=== PATIENT | female | born 1990 | race Caucasian/White ===

== ENCOUNTER 2016-06-29 10:33 | Emergency (ER) | payer BC, OTHER ==
[~2016-06-29] VITALS: Ht 162.6 cm; Wt 57.0 kg
[~2016-06-29 10:33] MED LIST: FRRS300 PO; IBUP600T44 PO; PRENTAB26 PO
[2016-06-29 10:45] VITALS: TEMP 36.6; Ht 162.6 cm; Wt 57.0 kg
[2016-06-29] MEDS ORDERED: HYDROCODONE/ACETAMOPHEN 5/325MG TAB PO STA (11:11)
[2016-06-29] MEDS ORDERED: ONDANSETRON 4MG OD TAB PO ONE (11:15)
[2016-06-29] MEDS ORDERED: ONDA4TAB10 SL (11:17)
--- NOTE | 2016-06-29 11:19 | EMERGENCY ROOM VISIT NOTE ---
ED Visit Note First contact with patient: 10:58 CHIEF COMPLAINT: Toothache HISTORY OF PRESENT ILLNESS: This 26-year-old female patient presented to the emergency department ambulatory complaining of left lower dental pain. The patient reports that she has a "bad tooth" in the left lower molars which has been present for several weeks. She states she has had severe pain radiating to the face for the past 12 hours. She has been unable to sleep due to the pain. She rates her discomfort 10/10. She does report a history of dental infections. She is been taking Tylenol without relief. She has an appointment with her dentist on August 15. She denies any fevers/chills or discharge from the mouth. She denies any difficulty swallowing or breathing. She denies neck swelling. The patient was seen at [facility] this morning and given penicillin and Vicodin and states that she vomited them up because the Vicodin made her sick. REVIEW OF SYSTEMS: A 6 system review of systems was completed with positives and pertinent negatives listed in the HPI. ALLERGIES: Bactrim MEDICATIONS: Zoloft PMH: No significant past medical history. SOCIAL HISTORY: The patient lives by herself. She is a smoker. She denies alcohol use. PHYSICAL EXAM: Vitals are noted on the nurse's note and reviewed by myself. Vital signs stable. Temperature 36.6C orally. GENERAL: This is a 26-year-old female, in no acute distress, nondiaphoretic, well-developed well-nourished. Mouth: The left lower molars are carious, but there is no significant gum swelling, no discharge or signs of abscess. The remainder of the pharynx and tonsils are without erythema, edema, or exudate. The airway is patent. There is no facial swelling, cervical or submandibular lymphadenopathy. The patient appears uncomfortable and in pain. The patient has overall poor dental hygiene. EARS: External auditory canals clear, tympanic membranes pearly huggins without erythema or effusion bilaterally. ED COURSE: The patient was evaluated as above. She did receive prescriptions for an antibiotic and Spiritwood at [facility] today. The patient reportedly was unable to take these due to nausea. She was given 1 tablet Spiritwood and one tablet Zofran here and was able to tolerate it without any nausea or vomiting. She was given a prescription for Zofran and told to fill her prescriptions from [facility]. She was instructed that she will need to follow-up with a dentist for further evaluation of her dental pain. Case management did speak with the patient and give her information for follow-up. The patient verbalized understanding of my assessment and treatment plan and was discharged home in good condition. DIAGNOSIS: Odontalgia Current/Historical Medications Scheduled Ondasetron Odt (Zofran Odt), 4 MG SL Q6H Sertraline (Zoloft), 50 MG PO DAILY Allergies Coded Allergies: Sulfamethoxazole w/Trimethoprim (Verified Allergy, Intermediate, Hives, ) Vital Signs Date Time Temp Pulse Resp B/P Pulse Ox O2 Delivery O2 Flow Rate FiO2 06/29/16 11:43 102 18 138/94 97 06/29/16 10:45 36.6 104 18 141/92 97 Room Air Medications Administered Medications (Trade) Dose Ordered Sig/Shanice Route Start Time Stop Time Status Last Admin Dose Admin Acetaminophen/ Hydrocodone Bitart (Spiritwood 5/325 Tab) 1 tab NOW STAT PO 06/29/16 11:11 06/29/16 11:12 DC 06/29/16 11:17 1 TAB Ondansetron HCl (Zofran Odt) 4 mg ONE ONCE PO 06/29/16 11:15 06/29/16 11:16 DC 06/29/16 11:16 4 MG Departure Information Impression Primary Impression: Dental caries Dispostion Home / Self-Care Condition GOOD Prescriptions Ondasetron Odt (ZOFRAN ODT) 4 Mg Tab 4 MG SL Q6H for Nausea, #15 TAB Prov: Kristina Sykes ., SOFIA 06/29/16 Referrals No Doctor, Assigned (PCP) Patient Instructions [facility] Additional Instructions You have been treated in the Emergency Department for Dental Pain. You have received pain medicine in the emergency department which impairs your ability to operate a vehicle. It is illegal for you to drive after receiving these medicines. Take your medications as prescribed. You have been prescribed Zofran to be used for any nausea or vomiting. Take as prescribed. For pain control, you can use the following tumj-far-obwpvid medicines (if >12 yo): - Regular strength (325mg/tab) Tylenol (acetaminophen) 2 tabs every 4-6 hours as needed. Do not exceed 12 tablets in a 24 hour period. Avoid taking more than 4 grams (4000 mg) of Tylenol per day. This includes any other sources of acetaminophen you may take on a regular basis. - Regular strength (200 mg/tab) Advil (ibuprofen) 1-2 tabs every 4-6 hours as needed. Do not exceed a dose of 3200 mg per day. Refrain from smoking cigarettes or using chewing tobacco until you have been evaluated by your dentist. Keeping beverages lukewarm and consuming soft foods can decrease your pain. Warm compresses over the affected area may offer some relief. You MUST seek evaluation of your dental pain by a dentist following your visit to the Emergency Department. The Emergency Department is not capable of treating dental issues long-term. You should call your dentist as soon as possible to make an appointment for evaluation of your dental pain. Return to the emergency department if you develop the following symptoms despite treatment course outlined above: fever, intractable pain, increased redness, swelling, or purulent discharge.
[2016-06-29 11:43] VITALS: BP 138/94; PULSE 102; O2SAT 97
[2016-11-30] MEDS ORDERED: SERT50TA PO (10:55)
[2016-12-03] MEDS ORDERED: SACC250C3 PO (07:57)
[2016-12-03] MEDS ORDERED: HYDR-5688 PO (07:57)
[2016-12-03] MEDS ORDERED: CLIN300C10 PO (07:57)
== END 2016-06-29 11:45 | disposition home or self-care (01) ==
LOC: C.EDB 10:35 → C.EDD 11:45
DX: K02.9 Dental caries, unspecified (principal); F17.200 Nicotine dependence, unspecified, uncomplicated

== ENCOUNTER 2016-11-30 15:53 | Inpatient (IN) | payer BC, OTHER ==
[~2016-11-30] VITALS: Ht 160 cm; Wt 50.0 kg
[~2016-11-30 15:53] MED LIST changes: -FRRS300 PO; -IBUP600T44 PO; +ONDA4TAB10 SL; -PRENTAB26 PO; +SERT50TA PO
[2016-11-30] MEDS ORDERED: AMPICILLIN/SULBACTAM SOD INJ 3,000 MG in SODIUM CHLORIDE 0.9% 100ML 100 ML IV STA (16:15)
[2016-11-30] MEDS ORDERED: SODIUM CHLORIDE 0.9% 500ML 500 ML IV STA (16:15)
[2016-11-30] MEDS ORDERED: MoRPHine SULFATE 4 MG/ML 1 ML CARP\\VIAL IV STA (16:20)
[2016-11-30] MEDS ORDERED: IBUP-1050 PO (16:20)
--- NOTE | 2016-11-30 16:24 | EMERGENCY ROOM VISIT NOTE ---
History First contact with patient: 16:05 Chief Complaint: DENTAL PAIN Stated Complaint: RT SIDE FACIAL SWELLING, SEVERE PAIN Nursing Triage Summary: Pt states she has a bad upper right tooth, started to have swelling this morning at 0200. "Bubble on roof of mouth that is painful, denies drainage. Has not contacted a dentist. History of Present Illness The patient is a 26 year old female who presents to the Emergency Room via private vehicle accompanied by family with complaints of "right-sided facial swelling, severe pain". The patient states that she had a right upper anterior tooth ache, and then this morning woke up around 2:30 AM and had severe right- sided facial pain and swelling from her right upper lip to her right eye. This does include the nasolabial fold. She rates the pain as a 9/10. She has tried ibuprofen with minimal relief. She was seen at [facility] around 4 AM today, and was given amoxicillin and Vicodin. She has taken one dose of amoxicillin and the swelling has progressed and worsened up to her eye. She's never had this before. She has had dental procedures in the past, and notes poor dentition. She denies any fevers or chills. She denies chance of . Review of Systems A complete 10-point Review of Systems was discussed with the patient, with pertinent positives and negatives listed in the History of Present Illness. All remaining Review of Systems questions can be considered negative unless otherwise specified. Past Medical/Surgical History Medical Problems: (1) Facial cellulitis (2) Facial cellulitis (3) Periapical abscess Left wrist surgery, ganglion cyst extraction. Family History Diabetes, high blood pressure, cancer. Social History Smoking Status: Current Every Day Smoker Social History: Patient currently lives alone, smokes tobacco, and denies alcohol use. Current/Historical Medications Scheduled Sertraline (Zoloft), 50 MG PO HS Scheduled PRN Ibuprofen (Advil), 800 MG PO Q8 PRN for Pain Allergies Coded Allergies: Sulfamethoxazole w/Trimethoprim (Verified Allergy, Intermediate, Hives, ) Physical Exam Vital Signs Date Time Temp Pulse Resp B/P (MAP) Pulse Ox O2 Delivery O2 Flow Rate FiO2 11/30/16 21:00 74 20 126/80 100 Room Air 11/30/16 19:16 70 18 125/92 100 11/30/16 17:55 64 12 135/88 100 11/30/16 17:54 100 Room Air 11/30/16 17:30 94 14 116/80 97 11/30/16 15:57 37.0 106 20 138/94 94 Room Air Physical Exam VITAL SIGNS - Vital signs and nursing notes were reviewed. Patient is afebrile , blood pressure 138/94, tachycardic at a rate of 106 bpm, and is saturating well on room air 94%. GENERAL -26-year-old female appearing her stated age who is in no acute distress. Communicates well with provider and answers questions appropriately. SKIN - Without rashes. No petechial rashes. There is slight erythema, and edema of the right side of the face from the right superior lip to the nasolabial fold and on the right eye. HEAD - NC/AT. EYES - PERRL with EOMI bilaterally. Sclera anicteric. Palpebral conjunctiva pink and moist with no injection noted. The right eye elicits painful EOMs. EARS - No deformities of external structures noted on gross examination bilaterally. No pain elicited with palpation of the tragus bilaterally. External auditory canals without discharge or otorrhea. Tympanic membranes pearly huggins without retraction or bulging. No fluid or purulent material visualized behind the TM. Handle of malleus, umbo, cone of light, pars tensa/ flaccid all easily visualized. NOSE - Midline and without cyanosis. No epistaxis or purulent drainage noted. Septum midline without deviation or septal hematoma noted. MOUTH/OROPHARYNX - Without perioral cyanosis. Buccal mucosa pink and moist and without leukoplakia. Tongue midline with equal elevation of palate bilaterally. No tonsillar hypertrophy, erythema, or exudates noted. No dentition noted. NECK - Neck with FROM. Supple to palpation. No lymphadenopathy noted. No nuchal rigidity. LUNGS - Chest wall symmetric without accessory muscle use, intercostals retractions, or central cyanosis. Normal vesicular breath sounds CTA B/L. No wheezes, rales, or rhonchi appreciated. CARDIAC - RRR with S1/S2. No murmur, rubs, or gallops appreciated. NEUROLOGIC - Cranial nerves II through XII grossly intact. PSYCH - Pt is very pleasant and interacts well with examiner. Medical Decision & Procedures ER Provider Diagnostic Interpretation: CT SCAN OF THE FACIAL BONES WITH IV CONTRAST CLINICAL HISTORY: Right facial edema and erythema. COMPARISON STUDY: No priors. TECHNIQUE: High-resolution CT scan of the facial bones is performed following the IV administration of 116 cc of Optiray 320. Images are reviewed in the axial, sagittal, and coronal planes. IV contrast was administered without complication. CT DOSE: 652.63 mGy.cm FINDINGS: The skeletal structures are well mineralized. There is no evidence of facial bone fracture. The bony orbits are intact and the orbital contents are within normal limits. The zygomatic arches, nasal bones, and pterygoid plates are preserved. The maxilla and mandible are intact. There are no layering blood products within the paranasal sinuses. Trace mucosal thickening is seen within the maxillary antra. The remaining paranasal sinuses and the mastoid air cells are clear. The visualized calvarium and upper cervical spine are maintained. Partially imaged brain parenchyma is within normal limits. A lip piercing is noted. There is a large periapical lucency with cortical breakthrough seen around the right maxillary incisors. There is an impacted tooth at this level. There is overlying soft tissue edema and induration. A 12 mm periapical abscess is observed. This is best seen on axial image #35 of 82. A periapical lucency with overlying cortical breakthrough is also seen involving the left maxillary canine. No additional periapical lucencies are identified. Numerous dental caries are observed. Several of the maxillary teeth are missing. Mildly enlarged cervical lymph nodes are likely on a reactive basis. IMPRESSION: 1. There is no evidence of facial bone fracture. 2. There is a large periapical lucency identified at the expected location of the right maxillary incisors. There is associated cortical breakthrough, with evidence of overlying cellulitis and a 12 mm abscess. There is an impacted/unerupted tooth at this site. Follow-up with dentistry is recommended. 3. A periapical lucency with cortical breakthrough is also seen involving the left maxillary canine. 4. Additional dental caries are identified. 5. Mildly enlarged cervical lymph nodes are likely on a reactive basis. Clinical correlation will be required. Electronically signed by: Marcellus Arevalo M.D. 11/30/2016 7:07 PM Dictated Date/Time: 11/30/2016 6:54 PM Laboratory Results 11/30/16 16:30 Red Blood Count 4.68, Mean Corpuscular Volume 85.7, Mean Corpuscular Hemoglobin 28.8, Mean Corpuscular Hemoglobin Concent 33.7, Mean Platelet Volume 10.4, Neutrophils (%) (Auto) 71.3, Lymphocytes (%) (Auto) 22.0, Monocytes (%) (Auto) 5.2, Eosinophils (%) (Auto) 1.2, Basophils (%) (Auto) 0.2, Neutrophils # (Auto) 10.53, Lymphocytes # (Auto) 3.24, Monocytes # (Auto) 0.76, Eosinophils # (Auto) 0.17, Basophils # (Auto) 0.03 11/30/16 16:30 Test 11/30/16 16:30 11/30/16 16:40 White Blood Count 14.75 K/uL (4.8-10.8) Red Blood Count 4.68 M/uL (4.2-5.4) Hemoglobin 13.5 g/dL (12.0-16.0) Hematocrit 40.1 % (37-47) Mean Corpuscular Volume 85.7 fL (80-100) Mean Corpuscular Hemoglobin 28.8 pg (25-34) Mean Corpuscular Hemoglobin Concent 33.7 g/dl (32-36) Platelet Count 210 K/uL (130-400) Mean Platelet Volume 10.4 fL (7.4-10.4) Neutrophils (%) (Auto) 71.3 % Lymphocytes (%) (Auto) 22.0 % Monocytes (%) (Auto) 5.2 % Eosinophils (%) (Auto) 1.2 % Basophils (%) (Auto) 0.2 % Neutrophils # (Auto) 10.53 K/uL (1.4-6.5) Lymphocytes # (Auto) 3.24 K/uL (1.2-3.4) Monocytes # (Auto) 0.76 K/uL (0.11-0.59) Eosinophils # (Auto) 0.17 K/uL (0-0.5) Basophils # (Auto) 0.03 K/uL (0-0.2) RDW Standard Deviation 42.0 fL (36.4-46.3) RDW Coefficient of Variation 13.3 % (11.5-14.5) Immature Granulocyte % (Auto) 0.1 % Immature Granulocyte # (Auto) 0.02 K/uL (0.00-0.02) Anion Gap 11.0 mmol/L (3-11) Est Creatinine Clear Calc Drug Dose 113.3 ml/min Estimated GFR () 146.3 Estimated GFR (Non- 126.2 BUN/Creatinine Ratio 12.3 (10-20) Calcium Level 8.8 mg/dl (8.5-10.1) Total Bilirubin 0.3 mg/dl (0.2-1) Aspartate Amino Transf (AST/SGOT) 9 U/L (15-37) Alanine Aminotransferase (ALT/SGPT) 15 U/L (12-78) Alkaline Phosphatase 35 U/L (45-117) Total Protein 7.5 gm/dl (6.4-8.2) Albumin 3.9 gm/dl (3.4-5.0) Globulin 3.6 gm/dl (2.5-4.0) Albumin/Globulin Ratio 1.1 (0.9-2) Human Chorionic Gonadotropin, Qual NEG (NEG) Lactic Acid Level 0.5 mmol/L (0.4-2.0) Medications Administered Medications (Trade) Dose Ordered Sig/Shanice Route Start Time Stop Time Status Last Admin Dose Admin Sodium Chloride 500 ml @ 999 mls/hr Q31M STAT IV 11/30/16 16:15 11/30/16 16:45 DC 11/30/16 16:40 999 MLS/HR Ampicillin Sodium/ Sulbactam Sodium 3000 mg/Sodium Chloride 108 ml @ 200 mls/hr NOW STAT IV 11/30/16 16:15 11/30/16 16:47 DC 11/30/16 17:13 200 MLS/HR Morphine Sulfate (MoRPHine SULFATE INJ) 4 mg NOW STAT IV 11/30/16 16:20 11/30/16 16:21 DC 11/30/16 16:40 4 MG Hydromorphone HCl (Dilaudid Inj) 0.5 mg NOW STAT IV 11/30/16 17:42 11/30/16 17:43 DC 11/30/16 17:55 0.5 MG Dexamethasone Sodium Phosphate (Decadron Inj) 10 mg NOW STAT IV 11/30/16 19:57 11/30/16 19:58 DC 11/30/16 20:32 10 MG Ondansetron HCl (Zofran Inj) 4 mg NOW STAT IV 11/30/16 19:57 11/30/16 19:58 DC 11/30/16 20:32 4 MG Sodium Chloride 1,000 ml @ 100 mls/hr Q10H IV 11/30/16 22:18 12/30/16 22:17 12/01/16 02:30 100 MLS/HR Medical Decision Patient was seen and evaluated as above. After obtaining a thorough history and physical examination IV access was initiated and the above workup was performed. Patient resistbriseyda was today with marked right-sided facial swelling, poor dentition and was believed to be an abscess in the patient's mouth and the anterior superior most portion of the hard palate. She is clinically not that toxic appearing, but is slightly tachycardic at a rate of 106 bpm, and again has marked facial swelling. CBC reveals leukocytosis of 14.75, no anemia. Patient's potassium is slightly low at 3.2. Kidney function is excellent. Liver function unremarkable for emergent process. Lactic acid is 0.5, test negative. She'll be given 3 g of Unasyn secondary to her infection. Case was discussed with my attending, and the decision was made to obtain a contrast CT scan of the maxillofacial region. This does reveal abscess , cortical breakthrough and infection. I did discuss the case subsequently with Dr. Goff, the on-call oral maxillofacial surgeon at [facility]. Just prior to the phone call the patient noted that the pocket in the mouth seem to rupture, and the mouth was rinsed. He (Dr. Goff) recommended that I provide the patient with 10 mg of dexamethasone here, begin her on Augmentin, and have her call for a follow-up in his office. She is also to follow up with a dentist in the meantime. I then went and spoke with the patient about this, and it was identified that the patient had begun to vomit. She was given Zofran. I was concerned that the vomiting could be from the infection, but it also could be from not eating much food today and also from the pain meds. Regardless, I do believe that the patient should stay secondary to her change in status, as well as her clinical presentation. I discussed the case with my attending, and subsequently the hospitalist. Please refer to further documentation regarding the patient's stay. In evaluation treatment this patient following differential diagnoses were entertained: Sepsis, cellulitis, orbital sialitis, perioral cellulitis, among others. The patient does have painful EOMs of the right eye, concerning for periorbital cellulitis. Admission will hinge on this diagnostic concern Impression Primary Impression: Facial cellulitis Additional Impression: Hypokalemia Departure Information Dispostion Admitted as an inpatient Condition FAIR Referrals No Doctor, Assigned (PCP) Patient Instructions [facility] Problem Qualifiers
[2016-11-30 17:08] LABS: BASO % 0.2 %; BASO ABS # 0.03 K/uL (0-0.2); COMPLETE YES; EOS % 1.2 %; HEMATOCRIT 40.1 % (37-47); IG% 0.1 %; LYMPH ABS # 3.24 K/uL (1.2-3.4); MEAN CELL VOLUME 85.7 fL (80-100); MEAN CORPUSCULAR HEMOGLOBIN 28.8 pg (25-34); MEAN CORPUSCULAR HGB CONC 33.7 g/dl (32-36); MEAN PLATELET VOLUME 10.4 fL (7.4-10.4); MONO % 5.2 %; NEUT % 71.3 %; PLATELET COUNT 210 K/uL (130-400); RED BLOOD COUNT 4.68 M/uL (4.2-5.4); WHITE BLOOD COUNT 14.75 K/uL (4.8-10.8)
[2016-11-30 17:26] LABS: BUN/CREATININE RATIO 12.3 (10-20); CALCIUM 8.8 mg/dl (8.5-10.1); CREATININE 0.62 mg/dl (0.60-1.20); POTASSIUM 3.2 mmol/L (3.5-5.1)
[2016-11-30 17:29] LABS: ALB/GLOB RATIO 1.1 (0.9-2)
[2016-11-30] MEDS ORDERED: HYDROmorphone INJ 0.5 MG/0.5 ML SYR IV STA ×2 (17:42→23:23)
[2016-11-30 17:48] LABS: PREG INTERNAL NEGATIVE QC NEG CLEAR BACKGROUND; PREG INTERNAL POSITIVE QC POS CONTROL LINE
[2016-11-30] MEDS ORDERED: OPTIRAY 320 IV PRN (19:00)
--- NOTE | 2016-11-30 19:09 | DIAGNOSTIC IMAGING REPORT ---
CT SCAN OF THE FACIAL BONES WITH IV CONTRAST CLINICAL HISTORY: Right facial edema and erythema. COMPARISON STUDY: No priors. TECHNIQUE: High-resolution CT scan of the facial bones is performed following the IV administration of 116 cc of Optiray 320. Images are reviewed in the axial, sagittal, and coronal planes. IV contrast was administered without complication. CT DOSE: 652.63 mGy.cm FINDINGS: The skeletal structures are well mineralized. There is no evidence of facial bone fracture. The bony orbits are intact and the orbital contents are within normal limits. The zygomatic arches, nasal bones, and pterygoid plates are preserved. The maxilla and mandible are intact. There are no layering blood products within the paranasal sinuses. Trace mucosal thickening is seen within the maxillary antra. The remaining paranasal sinuses and the mastoid air cells are clear. The visualized calvarium and upper cervical spine are maintained. Partially imaged brain parenchyma is within normal limits. A lip piercing is noted. There is a large periapical lucency with cortical breakthrough seen around the right maxillary incisors. There is an impacted tooth at this level. There is overlying soft tissue edema and induration. A 12 mm periapical abscess is observed. This is best seen on axial image #35 of 82. A periapical lucency with overlying cortical breakthrough is also seen involving the left maxillary canine. No additional periapical lucencies are identified. Numerous dental caries are observed. Several of the maxillary teeth are missing. Mildly enlarged cervical lymph nodes are likely on a reactive basis. IMPRESSION: 1. There is no evidence of facial bone fracture. 2. There is a large periapical lucency identified at the expected location of the right maxillary incisors. There is associated cortical breakthrough, with evidence of overlying cellulitis and a 12 mm abscess. There is an impacted/unerupted tooth at this site. Follow-up with dentistry is recommended. 3. A periapical lucency with cortical breakthrough is also seen involving the left maxillary canine. 4. Additional dental caries are identified. 5. Mildly enlarged cervical lymph nodes are likely on a reactive basis. Clinical correlation will be required. Electronically signed by: Marcellus Arevalo M.D. 11/30/2016 7:07 PM Dictated Date/Time: 11/30/2016 6:54 PM
[2016-11-30] MEDS ORDERED: ONDANSETRON INJ 2 MG/ML 2 ML VIAL IV STA (19:57)
[2016-11-30] MEDS ORDERED: DEXAMETHASONE SOD INJ 10 MG/ML VIAL IV STA (19:57)
[2016-11-30] MEDS ORDERED: ACETAMINOPHEN 325 MG TAB PO PRN (22:30)
[2016-11-30] MEDS ORDERED: ONDANSETRON INJ 2 MG/ML 2 ML VIAL IV PRN (22:30)
[2016-11-30] MEDS ORDERED: POLYETHYLENE (MIRALAX) 17 GM PACK PO PRN (22:30)
--- NOTE | 2016-11-30 22:37 | History and Physical ---
History & Physical Date & Time of Service: Nov 30, 2016 at 22:37 Chief Complaint: Rt Side Facial Swelling, Severe Pain Primary Care Physician: No Doctor, Assigned History of Present Illness Source: patient 26-year-old female presented to the ER with complaints of right-sided facial swelling and tooth ache which started yesterday. The patient stated that she had a history of poor dentition and developed toothache especially in her upper canine yesterday. She woke up this morning around 2:30 AM and noticed swelling along her right face including the eye. She also complained of feeling" a bubble" at the roof of her mouth which had spontaneously ruptured in the ER. Denies any fevers or chills. She also noticed blurriness in her right eye and painful extraocular muscles movement. She had used ibuprofen at home with minimal relief. Denies any history of trauma. Social History Smoking Status: Current Every Day Smoker Immunizations History of Influenza Vaccine: Unknown History of Tetanus Vaccine?: Unknown Allergies Coded Allergies: Sulfamethoxazole w/Trimethoprim (Verified Allergy, Intermediate, Hives, ) Home Medications Scheduled Clindamycin Hcl (Clindamycin Hcl), 300 MG PO TID Saccharomyces Boulardii (Florastor), 250 MG PO BID Sertraline (Zoloft), 50 MG PO HS Scheduled PRN Hydrocodone/Acetaminophen 5MG/325MG ([place] 5MG/325MG), 1 TAB PO Q6 PRN for Pain 5-10 Ibuprofen (Advil), 800 MG PO Q8 PRN for Pain Review of Systems Constitutional: No fever, No chills Eyes: + worsening of vision (blurriness of vision in right eye), + eye pain, No diplopia ENT: + dental problems (pain on right maxillary canine), + problem reported ( right-sided facial swelling) Cardiovascular: No chest pain, No orthopnea Abdomen: + vomiting, No pain, No nausea Musculoskeletal: No joint pain Genitourinary - Female: No dysuria, No urinary frequency Neurologic: No memory loss, No paralysis Endocrine: No fatigue Hematologic / Lymphatic: No abnormal bleeding/bruising Physical Exam Vital Signs Date Time Temp Pulse Resp B/P (MAP) Pulse Ox O2 Delivery O2 Flow Rate FiO2 11/30/16 21:00 74 20 126/80 100 Room Air 11/30/16 19:16 70 18 125/92 100 11/30/16 17:55 64 12 135/88 100 11/30/16 17:54 100 Room Air 11/30/16 17:30 94 14 116/80 97 11/30/16 15:57 37.0 106 20 138/94 94 Room Air General Appearance: WD/WN, no apparent distress Eyes: normal inspection ENT: hearing grossly normal, + pertinent finding (dental caries. dark ruptured abscess on hard palate) Neck: supple Respiratory/Chest: lungs clear, normal breath sounds, no respiratory distress, no accessory muscle use Abdomen/GI: normal bowel sounds, soft Back: normal inspection Extremities/Musculoskelatal: no pedal edema Neurologic/Psych: alert, normal mood/affect, oriented x 3 Skin: normal color Diagnostics Laboratory Results Results Past 24 Hours Test 11/30/16 16:30 11/30/16 16:40 Range/Units White Blood Count 14.75 4.8-10.8 K/uL Red Blood Count 4.68 4.2-5.4 M/uL Hemoglobin 13.5 12.0-16.0 g/dL Hematocrit 40.1 37-47 % Mean Corpuscular Volume 85.7 80-100 fL Mean Corpuscular Hemoglobin 28.8 25-34 pg Mean Corpuscular Hemoglobin Concent 33.7 32-36 g/dl Platelet Count 210 130-400 K/uL Mean Platelet Volume 10.4 7.4-10.4 fL Neutrophils (%) (Auto) 71.3 % Lymphocytes (%) (Auto) 22.0 % Monocytes (%) (Auto) 5.2 % Eosinophils (%) (Auto) 1.2 % Basophils (%) (Auto) 0.2 % Neutrophils # (Auto) 10.53 1.4-6.5 K/uL Lymphocytes # (Auto) 3.24 1.2-3.4 K/uL Monocytes # (Auto) 0.76 0.11-0.59 K/uL Eosinophils # (Auto) 0.17 0-0.5 K/uL Basophils # (Auto) 0.03 0-0.2 K/uL RDW Standard Deviation 42.0 36.4-46.3 fL RDW Coefficient of Variation 13.3 11.5-14.5 % Immature Granulocyte % (Auto) 0.1 % Immature Granulocyte # (Auto) 0.02 0.00-0.02 K/uL Sodium Level 142 136-145 mmol/L Potassium Level 3.2 3.5-5.1 mmol/L Chloride Level 107 98-107 mmol/L Carbon Dioxide Level 24 21-32 mmol/L Anion Gap 11.0 3-11 mmol/L Blood Urea Nitrogen 8 7-18 mg/dl Creatinine 0.62 0.60-1.20 mg/dl Est Creatinine Clear Calc Drug Dose 113.3 ml/min Estimated GFR () 146.3 Estimated GFR (Non- 126.2 BUN/Creatinine Ratio 12.3 10-20 Random Glucose 98 70-99 mg/dl Calcium Level 8.8 8.5-10.1 mg/dl Total Bilirubin 0.3 0.2-1 mg/dl Aspartate Amino Transf (AST/SGOT) 9 15-37 U/L Alanine Aminotransferase (ALT/SGPT) 15 12-78 U/L Alkaline Phosphatase 35 45-117 U/L Total Protein 7.5 6.4-8.2 gm/dl Albumin 3.9 3.4-5.0 gm/dl Globulin 3.6 2.5-4.0 gm/dl Albumin/Globulin Ratio 1.1 0.9-2 Human Chorionic Gonadotropin, Qual NEG NEG Lactic Acid Level 0.5 0.4-2.0 mmol/L Microbiology Results 11/30/16 Blood Culture, Received Pending 11/30/16 Blood Culture, Received Pending Diagnostic Radiology [~ rep ct add3]] CT SCAN OF THE FACIAL BONES WITH IV CONTRAST CLINICAL HISTORY: Right facial edema and erythema. COMPARISON STUDY: No priors. TECHNIQUE: High-resolution CT scan of the facial bones is performed following the IV administration of 116 cc of Optiray 320. Images are reviewed in the axial, sagittal, and coronal planes. IV contrast was administered without complication. CT DOSE: 652.63 mGy.cm FINDINGS: The skeletal structures are well mineralized. There is no evidence of facial bone fracture. The bony orbits are intact and the orbital contents are within normal limits. The zygomatic arches, nasal bones, and pterygoid plates are preserved. The maxilla and mandible are intact. There are no layering blood products within the paranasal sinuses. Trace mucosal thickening is seen within the maxillary antra. The remaining paranasal sinuses and the mastoid air cells are clear. The visualized calvarium and upper cervical spine are maintained. Partially imaged brain parenchyma is within normal limits. A lip piercing is noted. There is a large periapical lucency with cortical breakthrough seen around the right maxillary incisors. There is an impacted tooth at this level. There is overlying soft tissue edema and induration. A 12 mm periapical abscess is observed. This is best seen on axial image #35 of 82. A periapical lucency with overlying cortical breakthrough is also seen involving the left maxillary canine. No additional periapical lucencies are identified. Numerous dental caries are observed. Several of the maxillary teeth are missing. Mildly enlarged cervical lymph nodes are likely on a reactive basis. IMPRESSION: 1. There is no evidence of facial bone fracture. 2. There is a large periapical lucency identified at the expected location of the right maxillary incisors. There is associated cortical breakthrough, with evidence of overlying cellulitis and a 12 mm abscess. There is an impacted/unerupted tooth at this site. Follow-up with dentistry is recommended. 3. A periapical lucency with cortical breakthrough is also seen involving the left maxillary canine. 4. Additional dental caries are identified. 5. Mildly enlarged cervical lymph nodes are likely on a reactive basis. Clinical correlation will be required. Electronically signed by: Marcellus Arevalo M.D. 11/30/2016 7:07 PM Dictated Date/Time: 11/30/2016 6:54 PM Impression Assessment and Plan 26-year-old female with poor dentition presented to the ER with complaints of right-sided facial swelling and tooth ache which started yesterday. Right-sided facial cellulitis secondary to periapical abscess/dental caries with ?orbital cellulitis -Face CT: There is a large periapical lucency identified at the expected location of the right maxillary incisors. There is associated cortical breakthrough, with evidence of overlying cellulitis and a 12 mm abscess. A periapical lucency with cortical breakthrough is also seen involving the left maxillary canine. Additional dental caries are identified. - MRI face and orbits ordered to rule out osteomyelitis - blood cultures pending - Maxillofacial surgery consult - IV vancomycin, Unasyn, clindamycin - Pain control with Toradol, morphine for breakthrough pain Full code DVT prophylaxis: SCDs Disposition: Admitted to [facility] Level of Care Med/Surg Resuscitation Status FULL RESUSCITATION VTE Prophylaxis VTE Risk Assessment Done? Y/N: Yes Risk Level: Moderate Given or contraindicated: SCD's Resident Tracking Resident Involvement: Resident Care Provided Care Provided: Adult [facility] Medicine Assessment and Plan Attending Addendum: I physically seen and examined this patient, have supervised the medical residents medical activities, and agree with the H&P as noted above with the following exceptions: NONE The patient is awake, well-developed and adequately nourished, alert and oriented 3, right side of face is swollen from Maxilla to zygomatic arch with swelling of the lids causing a narrowing of the palpebral aperture. She is lying in bed and in no acute distress. HEENT--PERRL, EOMI, mucous membranes and oropharynx dry. Swelling of right side of face with mild erythema and warmth and as noted above. Neck--supple, no JVD or bruits, thyroid normal, trachea midline, no adenopathy. Heart--normal S1 and S2, no extra beats, no murmurs, rubs or gallops. Lungs--clear bilaterally with good air movement, no respiratory distress, no accessory muscle use. Abdomen--normal bowel sounds and soft, nontender and nondistended, no hernias or masses, no organomegaly. Extremities--no cyanosis, clubbing or edema. There are good distal pulses b/l. Dermatologic--normal except as noted above. Neurologic--cranial nerves II through XII grossly intact, motor and sensory examination normal. Rheumatologic--normal range of motion, nontender, muscles and joints. Psychiatric--normal affect. Assessment and Plan: 1. Right-sided facial cellulitis secondary to periapical abscess/poor dentition in general--the patient will be admitted to the hospital for IV vancomycin, IV Unasyn, and IV clindamycin. I recommended an MRI of the brain combo including the facial bones be performed to assess for possibility of osteomyelitis due to cortical disruption of bone noted on CT, and due to concern about possibility of meningitis. Maxillofacial surgical consult has been placed. She also be placed on IV fluids for rehydration, Zofran IV for nausea, and acetaminophen for pain.
[2016-11-30] MEDS ORDERED: VANCOMYCIN CONSULT ACTIVE PRN (22:45)
[2016-11-30] MEDS ORDERED: KETOROLAC TROMETHAMINE 30 MG/ML VIAL IV STA (23:28)
[2016-11-30 23:42] VITALS: O2SAT 97
[2016-12-01 01:55] VITALS: BP 127/75; PULSE 57; TEMP 36.6; O2SAT 97
[2016-12-01] MEDS ORDERED: MoRPHine SULFATE 2 MG/ML CARP ONE (02:26)
[2016-12-01] MEDS ORDERED: NURSING VERBAL MED ORDER ONE ×3 (02:30→11:30)
[2016-12-01] MEDS: SODIUM CHLORIDE 0.9% 1000ML 1,000 ML IV SCH ×3 (02:30→18:16)
[2016-12-01] MEDS ORDERED: MoRPHine SULFATE 2 MG/ML CARP IV ONE (02:30)
[2016-12-01] MEDS: CLINDAMYCIN IV 300 MG in DEXTROSE 5% 50ML 50 ML IV SCH ×3 (02:32→18:15)
[2016-12-01 02:43] VITALS: BP 127/75; PULSE 57; TEMP 36.6; Ht 160 cm; Wt 50.0 kg
[2016-12-01] MEDS ORDERED: VANCOMYCIN INJ 1,300 MG in SODIUM CHLORIDE 0.9% 250ML 250 ML IV ONE (02:45)
[2016-12-01] MEDS ORDERED: MoRPHine SULFATE 2 MG/ML CARP IV PRN (04:15)
[2016-12-01] MEDS: AMPICILLIN/SULBACTAM SOD INJ 3,000 MG in SODIUM CHLORIDE 0.9% 100ML 100 ML IV SCH ×4 (04:32→21:50)
--- NOTE | 2016-12-01 04:37 | Pharmacy Progress Note ---
Pharmacy Antibiotic Consult Date of Service: Dec 01, 2016. Pharmacy Dosing Scope Pharmacy is consulted to initiate VANC-IV dosing therapy, order appropriate labs and adjust drug dose/frequency. Subjective The patient is a 26 year old female admitted on Nov 30, 2016 at 22:32 ordered broad spectrum IV antibiotics (VANC/Unasyn/Clinda) for bone/joint infection Objective Height (Feet): 5 Height (Inches): 3.00 Weight (Kilograms): 50.000 Lab Results (24hrs): Test 11/30/16 16:30 11/30/16 16:40 White Blood Count 14.75 K/uL (4.8-10.8) Red Blood Count 4.68 M/uL (4.2-5.4) Hemoglobin 13.5 g/dL (12.0-16.0) Hematocrit 40.1 % (37-47) Mean Corpuscular Volume 85.7 fL (80-100) Mean Corpuscular Hemoglobin 28.8 pg (25-34) Mean Corpuscular Hemoglobin Concent 33.7 g/dl (32-36) Platelet Count 210 K/uL (130-400) Mean Platelet Volume 10.4 fL (7.4-10.4) Neutrophils (%) (Auto) 71.3 % Lymphocytes (%) (Auto) 22.0 % Monocytes (%) (Auto) 5.2 % Eosinophils (%) (Auto) 1.2 % Basophils (%) (Auto) 0.2 % Neutrophils # (Auto) 10.53 K/uL (1.4-6.5) Lymphocytes # (Auto) 3.24 K/uL (1.2-3.4) Monocytes # (Auto) 0.76 K/uL (0.11-0.59) Eosinophils # (Auto) 0.17 K/uL (0-0.5) Basophils # (Auto) 0.03 K/uL (0-0.2) RDW Standard Deviation 42.0 fL (36.4-46.3) RDW Coefficient of Variation 13.3 % (11.5-14.5) Immature Granulocyte % (Auto) 0.1 % Immature Granulocyte # (Auto) 0.02 K/uL (0.00-0.02) Sodium Level 142 mmol/L (136-145) Potassium Level 3.2 mmol/L (3.5-5.1) Chloride Level 107 mmol/L (98-107) Carbon Dioxide Level 24 mmol/L (21-32) Anion Gap 11.0 mmol/L (3-11) Blood Urea Nitrogen 8 mg/dl (7-18) Creatinine 0.62 mg/dl (0.60-1.20) Est Creatinine Clear Calc Drug Dose 113.3 ml/min Estimated GFR () 146.3 Estimated GFR (Non- 126.2 BUN/Creatinine Ratio 12.3 (10-20) Random Glucose 98 mg/dl (70-99) Calcium Level 8.8 mg/dl (8.5-10.1) Total Bilirubin 0.3 mg/dl (0.2-1) Aspartate Amino Transf (AST/SGOT) 9 U/L (15-37) Alanine Aminotransferase (ALT/SGPT) 15 U/L (12-78) Alkaline Phosphatase 35 U/L (45-117) Total Protein 7.5 gm/dl (6.4-8.2) Albumin 3.9 gm/dl (3.4-5.0) Globulin 3.6 gm/dl (2.5-4.0) Albumin/Globulin Ratio 1.1 (0.9-2) Human Chorionic Gonadotropin, Qual NEG (NEG) Lactic Acid Level 0.5 mmol/L (0.4-2.0) Micro Results: BC x 2 from 11/30/16 Recent Pertinent Medications * DAY # 1: Clinda 300mg IV every 8 hours * DAY # 2: Unasyn 3 grmas IV every 6 hours Assessment & Plan VANC-IV: * Estimated p'kinetics: Vd~0.7L/kg, Ke~0.0982hr-1, T1/2~ 7 hours * Loading dose: VANC 1300mg (~25mg/kg) IV X 1 dose then: * Maintenance Dose: VANC 800mg (~16mg/kg) IV every 8 hours. * Goal trough level estimate: between ~ 20 mcg/mL. * VANC trough @ [facility] prior to 12/02 1000 dose. Pharmacy will continue to follow and will adjust dose/frequency as necessary. Thank you
[2016-12-01 07:09] VITALS: BP 99/58; PULSE 74; TEMP 36.8; O2SAT 97
--- NOTE | 2016-12-01 08:35 | DIAGNOSTIC IMAGING REPORT ---
MRI maxillofacial ORBIT/FACE/NECK WITHOUT CLINICAL HISTORY: periapical abscess with right sided swelling dental abscess TECHNIQUE: Multiaxial MRI acquisition COMPARISON STUDY: CT examination dated 11/30/2016 FINDINGS: The orbits and globes are unremarkable. Retroseptal structures are unremarkable. Major sinuses are considered clear. There is a moderate amount of edema surrounding the right mandible and to lesser extent maxilla. May be a small 12 mm phlegmon lateral to the right mandibular angle. Dentition is as described in the patient's prior CT exam. Periapical lucencies identified in the patient's CT study are less well appreciated on MRI exam. There are several reactive cervical nodes in the cervical chains bilaterally. Indication again shows multifocal areas of irregularity which have been described previously. IMPRESSION: 1. The study does not add significantly to the CT findings described previously. 2.) Maxillary and perimandibular cellulitis. 3. Small phlegmon adjacent to the right mandibular angle. 4. No evidence for major drainable abscess or collection. 5. Abnormal dentition and periapical abscesses as described previously Electronically signed by: Maurisio Kam M.D. 12/01/2016 8:34 AM Dictated Date/Time: 12/01/2016 8:26 AM
[2016-12-01] MEDS ORDERED: LORAZEPAM 0.5 MG TAB PO SCH (09:00)
[2016-12-01 10:01] LABS: BASO % 0.1 %; BASO ABS # 0.01 K/uL (0-0.2); COMPLETE YES; HEMATOCRIT 35.3 % (37-47); IG% 0.2 %; LYMPH % 19.3 %; LYMPH ABS # 2.21 K/uL (1.2-3.4); MEAN CELL VOLUME 85.1 fL (80-100); MEAN CORPUSCULAR HEMOGLOBIN 29.2 pg (25-34); MEAN CORPUSCULAR HGB CONC 34.3 g/dl (32-36); NEUT % 76.4 %; PLATELET COUNT 189 K/uL (130-400); RED BLOOD COUNT 4.15 M/uL (4.2-5.4); WHITE BLOOD COUNT 11.46 K/uL (4.8-10.8)
[2016-12-01] MEDS: KETOROLAC TROMETHAMINE 15 MG/ML VIAL IV. PRN ×2 (10:14→18:15)
[2016-12-01 10:28] LABS: BLOOD UREA NITROGEN 12 mg/dl (7-18); BUN/CREATININE RATIO 23.8 (10-20); CALCIUM 9.1 mg/dl (8.5-10.1); CARBON DIOXIDE 24 mmol/L (21-32); CHLORIDE 108 mmol/L (98-107); GLUCOSE 99 mg/dl (70-99); POTASSIUM 3.5 mmol/L (3.5-5.1); SODIUM 140 mmol/L (136-145)
[2016-12-01] MEDS: VANCOMYCIN INJ 800 MG in SODIUM CHLORIDE 0.9% 250ML 250 ML IV SCH ×2 (10:53→18:15)
[2016-12-01] MEDS: DEXAMETHASONE INJ 8 MG in SYRINGE 0 ML IV SCH ×3 (11:42→23:23)
[2016-12-01] MEDS ORDERED: LORAZEPAM INJ 0.5 MG in SYRINGE 0.75 ML IV ONE (11:45)
--- NOTE | 2016-12-01 13:02 | DIAGNOSTIC IMAGING REPORT ---
ORBIT COMBO CLINICAL HISTORY: 26 year-old Female presenting with periapical abscess, extraocular eye movements painful. TECHNIQUE: Multisequence, multiplanar MR imaging of the orbits was performed before and after administration of 5 mL of Gadavist intravenous contrast. COMPARISON: CT from 11/30/2016 and noncontrast MR from 12/01/2016. FINDINGS: The previously described odontogenic abscess and dental disease is not well evaluated on this examination. Orbits: Globes appear normal. Orbits appear normal without evidence of a fluid collection to suggest abscess. Intraocular muscles demonstrate normal signal intensity. Optic nerves normal. Sinuses: There nasal sinuses clear. Turbinates within normal limits. Brain: Partially evaluated brain parenchyma is within normal limits. No hydrocephalus. No extra-axial fluid collection is apparent. Cervical spine: Upper cervical spine normal. IMPRESSION: 1. Normal orbits. No extension of recently demonstrated odontogenic infection into the sinuses or orbits. Electronically signed by: Malcolm Murphy 12/01/2016 1:01 PM Dictated Date/Time: 12/01/2016 12:45 PM
--- NOTE | 2016-12-01 15:07 | Progress Note ---
Subjective Date of Service: Dec 01, 2016. Subjective Pt evaluation today including: conversation w/ patient, conversation w/ family , physical exam, chart review, lab review, review of studies, conversation w/ dairy feed sales consultant, review of inpatient medication list c/o right facial swelling, tooth pain and right facial pain, the pain is expansion to lower orbital area Problem List Medical Problems: (1) Dental caries Status: Acute (2) Hypokalemia Status: Acute Review of Systems Constitutional: No fever, No chills, No sweats, No weight loss, No weakness, No fatigue, No problem reported Eyes: No worsening of vision, No eye pain, No redness, No discharge, No diplopia ENT: + see HPI, + problem reported, No hearing loss, No unusual epistaxis, No nasal symptoms, No sore throat, No tinnitus, No dental problems, No trouble swallowing Respiratory: No cough, No sputum, No wheezing, No shortness of breath, No dyspnea on exertion, No dyspnea at rest, No hemoptysis Cardiac: No chest pain, No orthopnea, No PND, No edema, No claudication, No palpitations Abdomen: No pain, No nausea, No vomiting, No diarrhea, No constipation Musculoskeletal: No joint pain, No muscle pain, No swelling, No calf pain Female : No dysuria, No urinary frequency, No hematuria, No incontinence, No abnormal vaginal bleeding, No vaginal discharge Neurologic: No memory loss, No paralysis, No weakness, No numbness/tingling, No vertigo, No balance problems Psychiatric: No depression symptoms, No anhedonism, No anxiety, No insomnia, No substance abuse Heme: No abnormal bleeding/bruising, No clotting problems, No swollen lymph nodes, No night sweats Endo: No fatigue, No excessive thirst, No excessive urination Skin: No rash, No itch, No new/changing skin lesions, No color change, No bleeding Objective Vital Signs Date Time Temp Pulse Resp B/P (MAP) Pulse Ox O2 Delivery O2 Flow Rate FiO2 12/01/16 07:09 36.8 74 19 99/58 (72) 97 Room Air 12/01/16 07:05 Room Air 12/01/16 02:43 36.6 57 20 127/75 Room Air 12/01/16 02:00 Room Air 12/01/16 01:55 36.6 57 20 127/75 (92) 97 Room Air 11/30/16 23:42 100 16 129/84 97 11/30/16 21:00 74 20 126/80 100 Room Air 11/30/16 19:16 70 18 125/92 100 11/30/16 17:55 64 12 135/88 100 11/30/16 17:54 100 Room Air 11/30/16 17:30 94 14 116/80 97 11/30/16 15:57 37.0 106 20 138/94 94 Room Air Physical Exam General Appearance: WD/WN, no apparent distress Eyes: normal inspection, EOMI, sclerae normal ENT: hearing grossly normal, pharynx normal, + pharyngeal erythema, + pertinent finding (right facial mild swelling, right lower eyelid mild swelling too, local mild tender,) Neck: supple, no adenopathy, thyroid normal, no JVD, no carotid bruits, trachea midline, + pertinent finding (there was no neck pain) Respiratory/Chest: chest non-tender, lungs clear, normal breath sounds, no respiratory distress, no accessory muscle use Cardiovascular: regular rate, rhythm, no edema, no gallop, no JVD, no murmur Abdomen: normal bowel sounds, non tender, soft, no organomegaly, no pulsatile mass Extremities: normal range of motion, non-tender, normal inspection, no pedal edema, no calf tenderness, normal capillary refill, pelvis stable Neurologic/Psychiatric: chopper feeder II-XII nml as tested, no motor/sensory deficits, alert, normal mood/affect, oriented x 3 Skin: normal color, warm/dry, no rash Lymphatic: no adenopathy Laboratory Results Last 24 Hours Test 11/30/16 16:30 11/30/16 16:40 12/01/16 09:45 White Blood Count 14.75 K/uL 11.46 K/uL Red Blood Count 4.68 M/uL 4.15 M/uL Hemoglobin 13.5 g/dL 12.1 g/dL Hematocrit 40.1 % 35.3 % Mean Corpuscular Volume 85.7 fL 85.1 fL Mean Corpuscular Hemoglobin 28.8 pg 29.2 pg Mean Corpuscular Hemoglobin Concent 33.7 g/dl 34.3 g/dl Platelet Count 210 K/uL 189 K/uL Mean Platelet Volume 10.4 fL 10.0 fL Neutrophils (%) (Auto) 71.3 % 76.4 % Lymphocytes (%) (Auto) 22.0 % 19.3 % Monocytes (%) (Auto) 5.2 % 4.0 % Eosinophils (%) (Auto) 1.2 % 0.0 % Basophils (%) (Auto) 0.2 % 0.1 % Neutrophils # (Auto) 10.53 K/uL 8.76 K/uL Lymphocytes # (Auto) 3.24 K/uL 2.21 K/uL Monocytes # (Auto) 0.76 K/uL 0.46 K/uL Eosinophils # (Auto) 0.17 K/uL 0.00 K/uL Basophils # (Auto) 0.03 K/uL 0.01 K/uL RDW Standard Deviation 42.0 fL 41.6 fL RDW Coefficient of Variation 13.3 % 13.3 % Immature Granulocyte % (Auto) 0.1 % 0.2 % Immature Granulocyte # (Auto) 0.02 K/uL 0.02 K/uL Sodium Level 142 mmol/L 140 mmol/L Potassium Level 3.2 mmol/L 3.5 mmol/L Chloride Level 107 mmol/L 108 mmol/L Carbon Dioxide Level 24 mmol/L 24 mmol/L Anion Gap 11.0 mmol/L 8.0 mmol/L Blood Urea Nitrogen 8 mg/dl 12 mg/dl Creatinine 0.62 mg/dl 0.50 mg/dl Est Creatinine Clear Calc Drug Dose 113.3 ml/min 136.9 ml/min Estimated GFR () 146.3 > 150.0 Estimated GFR (Non- 126.2 135.5 BUN/Creatinine Ratio 12.3 23.8 Random Glucose 98 mg/dl 99 mg/dl Calcium Level 8.8 mg/dl 9.1 mg/dl Total Bilirubin 0.3 mg/dl Aspartate Amino Transf (AST/SGOT) 9 U/L Alanine Aminotransferase (ALT/SGPT) 15 U/L Alkaline Phosphatase 35 U/L Total Protein 7.5 gm/dl Albumin 3.9 gm/dl Globulin 3.6 gm/dl Albumin/Globulin Ratio 1.1 Human Chorionic Gonadotropin, Qual NEG Lactic Acid Level 0.5 mmol/L 0.8 mmol/L Erythrocyte Sedimentation Rate 16 mm/hr Magnesium Level 2.0 mg/dl C-Reactive Protein 7.86 mg/dl Procalcitonin < 0.05 ng/ml Assessment and Plan 26-year-old female with poor dentition admitted on 12/01/2016 because of tooth ache , periapical abscess/dental caries Patient presented to the ER with complaints of right-sided facial swelling and tooth ache which started on the day prior to admission Right-sided facial cellulitis secondary to periapical abscess/dental caries MRI did not show any orbital cellulitis -Face CT: There is a large periapical lucency identified at the expected location of the right maxillary incisors. There is associated cortical breakthrough, with evidence of overlying cellulitis and a 12 mm abscess. A periapical lucency with cortical breakthrough is also seen involving the left maxillary canine. Additional dental caries are identified. No abscess possible has drainage by self already Discussed with oral surgeon, he recommend "nail down IV antibiotics, dexamethasone milligram every 6 hr 3 doses He also said the abscess has self drainaged already, do not need the procedure for now, However patient definitely need to be seen by dentist, and follow-up with him in 2-3 week - blood cultures pending - Until new IV vancomycin, Unasyn, clindamycin for now, she'll be able to nail down antibiotic soon - Pain control with Toradol, morphine for breakthrough pain GI and DVT prophylaxis covered, ambulation soon, out of bed to chair Continued [facility] stay due to: multiple IV medications needed Discharge planning: home
[2016-12-01 16:03] VITALS: BP 106/67; PULSE 77; TEMP 36.8; O2SAT 96
[2016-12-01 23:25] VITALS: BP 105/62; PULSE 77; TEMP 36.8; O2SAT 96
[2016-12-02] MEDS: KETOROLAC TROMETHAMINE 15 MG/ML VIAL IV. PRN ×2 (01:19→07:37)
[2016-12-02] MEDS: VANCOMYCIN INJ 800 MG in SODIUM CHLORIDE 0.9% 250ML 250 ML IV SCH (01:19)
[2016-12-02] MEDS: CLINDAMYCIN IV 300 MG in DEXTROSE 5% 50ML 50 ML IV SCH ×3 (01:19→18:20)
[2016-12-02] MEDS: SODIUM CHLORIDE 0.9% 1000ML 1,000 ML IV SCH (04:01)
[2016-12-02] MEDS: AMPICILLIN/SULBACTAM SOD INJ 3,000 MG in SODIUM CHLORIDE 0.9% 100ML 100 ML IV SCH (04:01)
[2016-12-02 07:21] VITALS: BP 93/54; PULSE 57; TEMP 36.7
[2016-12-02] MEDS ORDERED: NAPROXEN 250 MG TAB PO PRN (08:45)
[2016-12-02] MEDS ORDERED: NURSING VERBAL MED ORDER ONE (08:45)
[2016-12-02] MEDS ORDERED: VANCOMYCIN TROUGH ONE (09:30)
[2016-12-02] MEDS ORDERED: PANTOprazole SOD 40 MG TAB PO STA (09:49)
--- NOTE | 2016-12-02 09:49 | Progress Note ---
Subjective Date of Service: Dec 02, 2016. Subjective Pt evaluation today including: conversation w/ patient, physical exam, chart review, lab review, review of studies, conversation w/ hospice consultant, review of inpatient medication list Report still have right facial pain and swelling, however generally is improving , still have some pain 5 out of 10 which is mild throbbing pain right facial and right lower orbital area mild tender Problem List Medical Problems: (1) Dental caries Status: Acute (2) Hypokalemia Status: Acute Review of Systems Constitutional: No fever, No chills, No sweats, No weight loss, No weakness, No fatigue, No problem reported Eyes: + see HPI, No worsening of vision, No eye pain, No redness, No discharge , No diplopia ENT: + see HPI, No hearing loss, No unusual epistaxis, No nasal symptoms, No sore throat, No tinnitus, No dental problems, No trouble swallowing Respiratory: No cough, No sputum, No wheezing, No shortness of breath, No dyspnea on exertion, No dyspnea at rest, No hemoptysis Cardiac: No chest pain, No orthopnea, No PND, No edema, No claudication, No palpitations Abdomen: No pain, No nausea, No vomiting, No diarrhea, No constipation Musculoskeletal: No joint pain, No muscle pain, No swelling, No calf pain Female : No dysuria, No urinary frequency, No hematuria, No incontinence, No abnormal vaginal bleeding, No vaginal discharge Neurologic: No memory loss, No paralysis, No weakness, No numbness/tingling, No vertigo, No balance problems Psychiatric: No depression symptoms, No anhedonism, No anxiety, No insomnia, No substance abuse Heme: No abnormal bleeding/bruising, No clotting problems, No swollen lymph nodes, No night sweats Endo: No fatigue, No excessive thirst, No excessive urination Skin: No rash, No itch, No new/changing skin lesions, No color change, No bleeding Objective Vital Signs Date Time Temp Pulse Resp B/P (MAP) Pulse Ox O2 Delivery O2 Flow Rate FiO2 12/02/16 07:25 Room Air 12/02/16 07:21 36.7 57 18 93/54 (67) Room Air 98.0 12/01/16 23:25 36.8 77 14 105/62 (76) 96 Room Air 12/01/16 23:20 Room Air 12/01/16 16:03 36.8 77 18 106/67 (80) 96 Room Air 12/01/16 15:40 Room Air Physical Exam General Appearance: WD/WN, no apparent distress Eyes: normal inspection, PERRL, EOMI, sclerae normal, + pertinent finding ( right lower orbital mild tender) ENT: + pertinent finding (right face mild swelling, looks better, right oral cavities no obvious drainage of pus, mild tender when touching the right upper posterior teeth) Neck: supple, no adenopathy, thyroid normal, no JVD, no carotid bruits, trachea midline Respiratory/Chest: chest non-tender, lungs clear, normal breath sounds, no respiratory distress, no accessory muscle use Cardiovascular: regular rate, rhythm, no edema, no gallop, no JVD, no murmur Abdomen: normal bowel sounds, non tender, soft, no organomegaly, no pulsatile mass Extremities: normal range of motion, non-tender, normal inspection, no pedal edema, no calf tenderness, normal capillary refill, pelvis stable 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, no motor/sensory deficits, alert, normal mood/affect, oriented x 3, + abnormal cerebellar tests Skin: normal color, warm/dry, no rash Lymphatic: no adenopathy Laboratory Results Last 24 Hours Test 12/01/16 09:45 12/02/16 09:30 White Blood Count 11.46 K/uL Red Blood Count 4.15 M/uL Hemoglobin 12.1 g/dL Hematocrit 35.3 % Mean Corpuscular Volume 85.1 fL Mean Corpuscular Hemoglobin 29.2 pg Mean Corpuscular Hemoglobin Concent 34.3 g/dl Platelet Count 189 K/uL Mean Platelet Volume 10.0 fL Neutrophils (%) (Auto) 76.4 % Lymphocytes (%) (Auto) 19.3 % Monocytes (%) (Auto) 4.0 % Eosinophils (%) (Auto) 0.0 % Basophils (%) (Auto) 0.1 % Neutrophils # (Auto) 8.76 K/uL Lymphocytes # (Auto) 2.21 K/uL Monocytes # (Auto) 0.46 K/uL Eosinophils # (Auto) 0.00 K/uL Basophils # (Auto) 0.01 K/uL RDW Standard Deviation 41.6 fL RDW Coefficient of Variation 13.3 % Immature Granulocyte % (Auto) 0.2 % Immature Granulocyte # (Auto) 0.02 K/uL Erythrocyte Sedimentation Rate 16 mm/hr Sodium Level 140 mmol/L Potassium Level 3.5 mmol/L Chloride Level 108 mmol/L Carbon Dioxide Level 24 mmol/L Anion Gap 8.0 mmol/L Blood Urea Nitrogen 12 mg/dl Creatinine 0.50 mg/dl Est Creatinine Clear Calc Drug Dose 136.9 ml/min Estimated GFR () > 150.0 Estimated GFR (Non- 135.5 BUN/Creatinine Ratio 23.8 Random Glucose 99 mg/dl Lactic Acid Level 0.8 mmol/L Calcium Level 9.1 mg/dl Magnesium Level 2.0 mg/dl C-Reactive Protein 7.86 mg/dl Procalcitonin < 0.05 ng/ml Assessment and Plan 26-year-old female with poor dentition admitted on 12/01/2016 because of tooth ache , periapical abscess/dental caries Patient presented to the ER with complaints of right-sided facial swelling and tooth ache which started on the day prior to admission Right-sided facial cellulitis secondary to periapical abscess/dental caries: Stable and improving MRI did not show any orbital cellulitis -Face CT: There is a large periapical lucency identified at the expected location of the right maxillary incisors. There is associated cortical breakthrough, with evidence of overlying cellulitis and a 12 mm abscess. A periapical lucency with cortical breakthrough is also seen involving the left maxillary canine. Additional dental caries are identified. No abscess possible has drainage by self already Discussed with oral surgeon, he recommend "nail down IV antibiotics, dexamethasone milligram every 6 hr 3 doses He also said the abscess has self drainage already, do not need the procedure for now, However patient definitely need to be seen by dentist, and follow-up with him in 2-3 week - blood cultures no growth so far -Has been on IV vancomycin, Unasyn, clindamycin - We'll discontinue vancomycin and Unasyn, continue clindamycin, possible switch to oral clindamycin if continue doing well and discharge home tomorrow - Counseling above the side effect of antibiotics, such as severe diarrhea like C. difficile diarrhea, add probiotics - Has been on Pain control with Toradol, morphine for breakthrough pain, will switch to oral pill for the pain control for the preparing of discharge to home GI and DVT prophylaxis covered, ambulation soon, out of bed to chair Possible discharge home tomorrow if continued doing well Continued [facility] stay due to: multiple IV medications needed Discharge planning: home
[2016-12-02 10:07] LABS: BASO % 0.1 %; BASO ABS # 0.01 K/uL (0-0.2); COMPLETE YES; IG% 0.4 %; LYMPH % 15.9 %; MEAN CELL VOLUME 85.1 fL (80-100); MEAN CORPUSCULAR HEMOGLOBIN 29.5 pg (25-34); MEAN CORPUSCULAR HGB CONC 34.7 g/dl (32-36); MEAN PLATELET VOLUME 9.7 fL (7.4-10.4); MONO % 5.3 %; NEUT % 78.3 %; PLATELET COUNT 187 K/uL (130-400); RED BLOOD COUNT 3.76 M/uL (4.2-5.4); WHITE BLOOD COUNT 16.33 K/uL (4.8-10.8)
[2016-12-02 10:35] LABS: BUN/CREATININE RATIO 25.5 (10-20); CALCIUM 8.7 mg/dl (8.5-10.1); CREATININE 0.58 mg/dl (0.60-1.20); MAGNESIUM 1.8 mg/dl (1.8-2.4); POTASSIUM 3.7 mmol/L (3.5-5.1)
[2016-12-02 14:46] VITALS: BP 105/65; PULSE 57; TEMP 36.9; O2SAT 98
[2016-12-02] MEDS: HYDROCODONE/ACETAMOPHEN 5/325MG TAB PO PRN ×2 (14:48→22:23)
[2016-12-02] MEDS: SACCHAROMYCES BOUL (FLORASTOR) 250 MG CAP PO SCH (20:30)
[2016-12-02 23:21] VITALS: BP 113/73; PULSE 54; TEMP 36.6; O2SAT 98
[2016-12-03] MEDS: CLINDAMYCIN IV 300 MG in DEXTROSE 5% 50ML 50 ML IV SCH ×2 (01:46→09:41)
[2016-12-03] MEDS: HYDROCODONE/ACETAMOPHEN 5/325MG TAB PO PRN ×2 (06:02→13:07)
[2016-12-03 06:44] LABS: CREATININE 0.57 mg/dl (0.60-1.20)
[2016-12-03 06:51] VITALS: BP 93/52; PULSE 62; TEMP 36.6; O2SAT 96
[2016-12-03] MEDS ORDERED: CLIN300C10 PO (07:57)
[2016-12-03] MEDS ORDERED: SACC250C3 PO (07:57)
[2016-12-03] MEDS ORDERED: HYDR-5688 PO (07:57)
--- NOTE | 2016-12-03 07:57 | Discharge Instructions ---
Discharge Instructions Date of Service Dec 03, 2016. Admission Reason for Admission: Facial Cellulitis Discharge Discharge Diagnosis / Problem: periapical abscess Discharge Goals Goal(s): Decrease discomfort, Improve function, Increase independence, Improve disease control, Improve nutritional status, Learn about illness, Diagnostic testing, Therapeutic intervention, Prevent Disease Progression, Specific goals Activity Recommendations Activity Limitations: resume your previous activity . Instructions / Follow-Up Instructions / Follow-Up you have Right-sided facial cellulitis secondary to periapical abscess/dental caries: you need to follow up with oral surgeon Dr. Denver Yu in 2-3 weeks ( our navigator will help you to set up) you definitely need to be seen by dentist in 1-2 weeks ( talk to our navigator if you need) I am giving you clindamycin for 10 days this medicine may have the side effects, such as severe diarrhea l you should call pcp if have any questions or concerns soft, and easy chewing diet - you need to follow up with your primary care physician in 1 week, - take medication as instructed, never overdose or any misuse, or take with alcohol, because misuse of medicine may cause organ damage or , call your primary care physician if have questions of medicaitons. - call your primary care physician OR go to local emergency room if has any fever/chill, chest pain, shortness of breathing, nausea/vomiting/abdominal pain , facial droop/slurry speech/local weakness, or if has any questions. - fall precaution - diet as instructed - you need to follow up with your subspecialist - you should understand that it is important to follow up the above instruction , and "not following the above instruction" may cause delayed or missed care of your medical conditions which may cause permanent organ damage and even . Current Hospital Diet Patient's current hospital diet: Regular Diet Discharge Diet Recommended Diet: Regular Diet Procedures Procedures Performed: no Pending Studies Studies pending at discharge: no Laboratory Results Meds Administered (Past 24Hrs) Medications (Trade) Dose Ordered Sig/Shanice Route Start Time Stop Time Status Last Admin Dose Admin Vancomycin HCl 800 mg/Sodium Chloride 266 ml @ 125 mls/hr Q8@0200,1000,1800 IV 12/01/16 10:00 12/02/16 08:38 DC 12/02/16 01:19 125 MLS/HR Dexamethasone Sodium Phosphate 8 mg/Syringe 2 ml @ 1 mls/min Q6 IV 12/01/16 12:00 12/02/16 00:01 DC 12/01/16 23:23 1 MLS/MIN Lorazepam 0.5 mg/ Syringe 1 ml @ 1 mls/min NOW ONCE IV 12/01/16 11:45 12/01/16 11:46 DC 12/01/16 11:42 1 MLS/MIN Acetaminophen/ Hydrocodone Bitart ([place] 5/325 Tab) 1 tab Q6 PRN PO 12/02/16 08:45 12/16/16 08:44 12/03/16 06:02 1 TAB Pantoprazole Sodium (Protonix Tab) 40 mg NOW STAT PO 12/02/16 09:49 12/02/16 10:01 DC 12/02/16 10:17 40 MG Saccharomyces Boulardii (Florastor Cap) 250 mg BID PO 12/02/16 21:00 01/01/17 20:59 12/02/16 20:30 250 MG Medical Emergencies . Who to Call and When: Medical Emergencies: If at any time you feel your situation is an emergency, please call 911 immediately. . Non-Emergent Contact Non-Emergency issues call your: Primary Care Provider . . "Provider Documentation" section prepared by Lui Santiago. . VTE Core Measure Inpt VTE Proph given/why not?: SCD's
[2016-12-03] MEDS: SACCHAROMYCES BOUL (FLORASTOR) 250 MG CAP PO SCH (08:58)
[2016-12-03] MEDS ORDERED: PANTOprazole SOD 40 MG TAB PO SCH (09:00)
[2016-12-03 11:23] VITALS: BP 93/52; PULSE 62; TEMP 36.6; O2SAT 96
--- NOTE | 2016-12-03 12:31 | Discharge Summary ---
Discharge Summary Date of Service Dec 03, 2016. Discharge Summary Admission Date: Nov 30, 2016 at 22:32 Discharge Date: Dec 03, 2016 Discharge Disposition: Home Principal Diagnosis: Right-sided facial cellulitis secondary to periapical abscess/dental caries Problems/Secondary Diagnoses: periapical abscess/dental caries Immunizations: Have You Had Influenza Vaccine: Unknown History of Tetanus Vaccine?: Unknown Medication Reconciliation New Medications: Clindamycin Hcl (Clindamycin Hcl) 300 Mg Cap 300 MG PO TID for 10 Days Hydrocodone/Acetaminophen 5MG/325MG ([place] 5MG/325MG) Tab 1 TAB PO Q6 PRN for Pain 5-10 for 3 Days, TAB PRN PAIN Saccharomyces Boulardii (Florastor) 250 Mg Cap 250 MG PO BID for 10 Days, #20 CAP Continued Medications: Ibuprofen (Advil) 200 Mg Tab 800 MG PO Q8 PRN for Pain, TAB Sertraline (Zoloft) 50 Mg Tab 50 MG PO HS Discharge Exam Complain of the roof of oral cavity has some opening and mild pain, otherwise right facial swelling and pain is better, right lower part of orbital pain is better too, no fever and chill Review of Systems: Constitutional: No fever, No chills, No sweats, No weight loss, No weakness , No fatigue, No problem reported Eyes: No worsening of vision, No eye pain, No redness, No discharge, No diplopia, No problem reported ENT: + problem reported ( roof of oral cavity has 3-4 mm of mucus ulceration , no pus, right face minimal swelling, and right lower jaw mild tender, is better than yesterday,), No hearing loss, No unusual epistaxis, No nasal symptoms, No sore throat, No tinnitus, No dental problems, No trouble swallowing Respiratory: No cough, No sputum, No wheezing, No shortness of breath, No dyspnea on exertion, No dyspnea at rest, No hemoptysis, No problem reported Cardiovascular: No chest pain, No orthopnea, No PND, No edema, No claudication, No palpitations, No problem reported Abdomen: No pain, No nausea, No vomiting, No diarrhea, No constipation, No GI bleeding, No problem reported Musculoskeletal: No joint pain, No muscle pain, No swelling, No calf pain, No problem reported Genitourinary - Female: No dysuria, No urinary frequency, No urinary urgency , No urinary incontinence, No urinary retention, No hematuria, No dysmenorrhea, No menorrhagia, No metrorrhagia, No rash, No vaginal bleeding, No vaginal discharge, No vaginal itching, No vulvodynia, No , No problem reported Neurologic: No memory loss, No paralysis, No weakness, No numbness/tingling , No vertigo, No balance problems, No problem reported Psychiatric: No depression symptoms, No anhedonism, No anxiety, No insomnia , No substance abuse, No problem reported Endocrine: No fatigue, No excessive thirst, No excessive urination, No problem reported Physical Exam: General Appearance: WD/WN, no apparent distress ENT: normal ENT inspection, hearing grossly normal, + pertinent finding ( roof of oral cavity has 3-4 mm of mucus ulceration, no pus, right face minimal swelling, and right lower jaw mild tender, is better than yesterday,) Neck: supple, no adenopathy Respiratory/Chest: chest non-tender, lungs clear, normal breath sounds, no respiratory distress, no accessory muscle use Cardiovascular: regular rate, rhythm, no edema, no gallop, no JVD Abdomen / GI: normal bowel sounds, non tender, soft Extremities: normal inspection, no calf tenderness, normal capillary refill , no pedal edema 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, no motor/sensory deficits , alert, normal mood/affect, normal reflexes Skin: normal color, warm/dry, no rash Hospital Course 26-year-old female with poor dentition admitted on 12/01/2016 because of tooth ache , periapical abscess/dental caries Patient presented to the ER with complaints of right-sided facial swelling and tooth ache which started on the day prior to admission Right-sided facial cellulitis secondary to periapical abscess/dental caries: Continue Stable and improving MRI did not show any orbital cellulitis -Face CT: There is a large periapical lucency identified at the expected location of the right maxillary incisors. There is associated cortical breakthrough, with evidence of overlying cellulitis and a 12 mm abscess. A periapical lucency with cortical breakthrough is also seen involving the left maxillary canine. Additional dental caries are identified. No abscess possible has drainage by self already Discussed with oral surgeon, he recommend "nail down IV antibiotics, dexamethasone milligram every 6 hr 3 doses He also said the abscess has self drainage already, do not need the procedure for now, However patient definitely need to be seen by dentist, and follow-up with oral surgeon in 2-3 week - blood cultures no growth so far -Has been on IV vancomycin, Unasyn, clindamycin - has discontinue vancomycin and Unasyn, continue clindamycin, and will switch to oral clindamycin 300 mg by mouth 3 times a day for 10 days more - Counseling above the side effect of antibiotics, such as severe diarrhea like C. difficile diarrhea, add probiotics - Has been on Pain control with Toradol, morphine for breakthrough pain, will switch to oral pill for the pain control for the preparing of discharge to home GI and DVT prophylaxis covered, ambulation soon, out of bed to chair Instructions / Follow-Up you have Right-sided facial cellulitis secondary to periapical abscess/dental caries: you need to follow up with oral surgeon or neurosurgeon in 2-3 weeks ( our navigator will help you to set up) you definitely need to be seen by dentist in 1-2 weeks ( talk to our navigator if you need) I am giving you clindamycin for 10 days this medicine may have the side effects, such as severe diarrhea l you should call pcp if have any questions or concerns soft, and easy chewing diet - you need to follow up with your primary care physician in 1 week, - Keep oral clean and use mouthwash - take medication as instructed, never overdose or any misuse, or take with alcohol, because misuse of medicine may cause organ damage or , call your primary care physician if have questions of medicaitons. - call your primary care physician OR go to local emergency room if has any fever/chill, chest pain, shortness of breathing, nausea/vomiting/abdominal pain , facial droop/slurry speech/local weakness, or if has any questions. - fall precaution - diet as instructed - you need to follow up with your subspecialist - you should understand that it is important to follow up the above instruction , and "not following the above instruction" may cause delayed or missed care of your medical conditions which may cause permanent organ damage and even . Total Time Spent: Greater than 30 minutes This includes examination of the patient, discharge planning, medication reconciliation, and communication with other providers. Discharge Instructions Please refer to the electronic Patient Visit Report (Discharge Instructions) for additional information. Additional Copies To Heidi Young D.O.
== END 2016-12-03 14:24 | disposition home or self-care (01) | DRG 158 ==
LOC: C.EDB 15:55 → C.MSN 22:32 → EDBEDREQSVC 23:14 → ENRESERV 23:17
PROVIDERS: ADMIT Family Medicine; ATTEND Hospitalist
DX: K04.7 Periapical abscess without sinus (principal); L03.211 Cellulitis of face; K02.9 Dental caries, unspecified; K08.9 Disorder of teeth and supporting structures, unspecified; F17.210 Nicotine dependence, cigarettes, uncomplicated; E87.6 Hypokalemia; Z79.899 Other long term (current) drug therapy; Z79.891 Long term (current) use of opiate analgesic; Z79.1 Long term (current) use of non-steroidal anti-inflammatories (NSAID)